=== PATIENT | male | born 1975 | race Caucasian/White ===

== ENCOUNTER 2019-06-04 09:44 | Emergency (ER) | payer BC, OTHER ==
[~2019-06-04] VITALS: Ht 182.9 cm; Wt 120.2 kg
--- NOTE | 2019-06-04 10:22 | NUR ---
ERMD at bedside performing I&D for right eye.
--- NOTE | 2019-06-04 10:37 | NUR ---
Patient discharged to home in stable conditon. Written and verbal after care instructions given. Patient verbalizes understanding of instructions. Patient ambulated with stable gait.
[2019-06-04 10:39] VITALS: BP 135/80
== END 2019-06-04 10:39 | disposition home or self-care (01) ==
LOC: ER 09:44
DX: L02.01 Cutaneous abscess of face (principal)
CPT/HCPCS: A4663

== ENCOUNTER 2019-07-11 20:02 | Emergency (ER) | payer OTHER ==
[~2019-07-11] VITALS: Ht 182.9 cm; Wt 122.5 kg
--- NOTE | 2019-07-11 20:15 | NUR ---
Dr. Garcia at bedside for MSE.
[2019-07-11] MEDS ORDERED: MAG HYDROX/AL HYDROX/SIMETH 30 ML LIQUID UDC ONE (20:25)
[2019-07-11] MEDS ORDERED: LIDOCAINE VISCUS 2% 15 ML UDC ONE ×2 (20:27→20:37)
--- NOTE | 2019-07-11 20:27 | NUR ---
Xray at bedside.
[2019-07-11] MEDS ORDERED: LIDOCAINE VISCUS 2% 15 ML UDC MM ONE (20:30)
[2019-07-11] MEDS ORDERED: MAG HYDROX/AL HYDROX/SIMETH 30 ML LIQUID UDC PO ONE (20:30)
[2019-07-11 20:33] LABS: BASOPHILS # (AUTO) 0.1 K/uL (0.0-8.0); BASOPHILS % (AUTO) 0.5 % (0.0-2.0); EOSINOPHILS # (AUTO) 0.2 K/uL (0.0-0.7); EOSINOPHILS % (AUTO) 2.1 % (0.0-7.0); HEMATOCRIT 45.6 % (36.7-47.1); HEMOGLOBIN 15.8 g/dL (12.5-16.3); LYMPHOCYTES % (AUTO) 27.2 % (20.5-51.5); MEAN CORPUSCULAR HEMOGLOBIN 30.1 uug (23.8-33.4); MEAN CORPUSCULAR HGB CONC 35 g/dL (32.5-36.3); MEAN CORPUSCULAR VOLUME 87.1 fL (73.0-96.2); MONOCYTES # (AUTO) 1.1 K/uL (2.0-10.0); MONOCYTES % (AUTO) 10.2 % (0.0-11.0); NEUTROPHILS # (AUTO) 6.6 K/uL (1.8-8.9); PLATELET COUNT (AUTO) 292 K/uL (152-348); RED BLOOD CELL COUNT(AUTO) 5.24 MIL/uL (4.06-5.63)
[2019-07-11 20:40] LABS: CREATININE 0.9 mg/dL (0.6-1.3); POTASSIUM 3.8 mmol/L (3.5-5.1)
[2019-07-11 20:52] LABS: BILIRUBIN,DIRECT 0.1 mg/dL (0.0-0.2); BILIRUBIN,TOTAL 0.4 mg/dL (0.2-1.0); TOTAL PROTEIN, SERUM 7.5 g/dL (6.4-8.2)
[2019-07-11] MEDS ORDERED: PANTOPRAZOLE SODIUM 40 MG VIAL ONE (20:59)
[2019-07-11] MEDS ORDERED: PANTOPRAZOLE SODIUM 40 MG TABLET.DR PO ONE (21:00)
[2019-07-11] MEDS ORDERED: PANTOPRAZOLE SODIUM 40 MG VIAL IV ONE (21:30)
--- NOTE | 2019-07-12 00:14 | NUR ---
Patient discharged to home in stable conditon. Written and verbal after care instructions given. Patient verbalizes understanding of instructions. Pt ambulated out of ER with steady gait, no acute signs of distress, VSS, all belongings taken, IV site discontinued.
[2019-07-12 00:15] VITALS: BP 161/94
== END 2019-07-12 00:15 | disposition home or self-care (01) ==
LOC: ER 20:03
DX: R07.9 Chest pain, unspecified (principal); K29.70 Gastritis, unspecified, without bleeding
CPT/HCPCS: 36415; 71045; 80048; 80076; 83690; 83880; 84484 ×2; 85025; 85730; 93005 ×2; 96374; 99284; C9113; 70030-TC; A4663